=== PATIENT | female | born 1955 | race Caucasian/White ===

== ENCOUNTER → 2020-10-19 13:35 | Outpatient (CLI) | payer MEDICARE, OTHER, MEDICAID, SELFPAY ==
--- NOTE | 2020-10-19 | DI.ECHO.S_ITS ---
[facility] +---------+ : : [address] : : : : [id number] : : : : Phone: [phone]---------+ Echocardiogram Report + + :Name: TONY DUARTE Study Date: 10/19/2020 Height: 65 in : :[facility] ReadingLocation: Weight: 87 lb : : Gender: Female BSA: 1.4 m2 : :: 1955 Age: 65 yrs BP: 173/98 mmHg: :Reason For Study: Syncope : :Ordering Physician: Thomas : :Joanne Mojica Performed By: Demian Reaves : :Referring: THOMAS MOJICA : + + Interpretation Summary Left ventricular systolic function appears normal with an estimated ejection fraction of 55 to 60% without any focal wall motion abnormality. Left ventricular size and wall thickness grossly appear normal. While diastolic function is challenging to definitively assess, there is probable normal diastolic function with normal filling pressures. The right ventricle is not well seen but grossly appears normal in size and systolic function. Right ventricular systolic pressure is estimated at 39 mmHg with a CVP of 3 mmHg. The atria not well visualized but grossly appear to be normal in size. There is mild tricuspid regurgitation but no other significant valvular abnormality. Procedure: A two-dimensional transthoracic echocardiogram with color flow and Doppler was performed. The study quality was technically adequate. There is no prior echocardiogram noted for this patient. The patient was in sinus rhythm with heart rates between 55-65 bpm during the exam. Left Ventricle: The left ventricle is normal in size and wall thickness. The left ventricle appears normal in size, wall thickness, and systolic function without any focal wall motion abnormalities. The ejection fraction is estimated to be 55-60%. Diastolic function could not be accurately assessed due to unobtainable data. Diastolic parameters suggest probable normal left ventricular diastolic function and normal filling pressures. Right Ventricle: The right ventricle is not well visualized. The right ventricle grossly appears normal in size with probable normal systolic function. Atria: The left atrium is not well visualized. The left atrium grossly appears normal in size. Right atrium not well visualized. There is no Doppler evidence for an interatrial shunt. Mitral Valve: The mitral valve is normal in structure and function. There is no mitral regurgitation noted. Aortic Valve: The aortic valve is normal in structure and function. The aortic valve is slightly calcified. The aortic valve opens well. There is no aortic valve stenosis. No aortic regurgitation is present. Tricuspid Valve: The tricuspid valve is not well visualized, but is grossly normal. There is mild tricuspid regurgitation. The right ventricular systolic pressure is estimated to be at least 39 mmHg based on an estimated right atrial pressure of 3 mm Hg. Pulmonic Valve: The pulmonic valve is normal in structure and function. There is no pulmonic valvular regurgitation. There is no other significant valvular heart disease. Great Vessels: The aortic root is normal size. The ascending aorta could not be visualized. The IVC is of normal diameter and collapses greater than 50% with a sniff. This suggests a low right atrial pressure of 3 mm Hg. Pericardium/ Pleura There is no pericardial effusion. There is no pleural effusion. MMode/2D Measurements & Calculations LVIDd: 3.9 cm LVOT diam: 2.0 cm LVIDs: 2.7 cm Ao root diam: 2.9 cm FS: 31.1 % IVSd: 0.63 cm LVPWd: 0.49 cm LV crisostomo. diameter/BSA (cm/m^2): 2.8 LV sys. diameter/BSA (cm/m^2): 1.9 LA A2 area: 6.8 cm2 IVC diam: 1.6 cm TAPSE: 2.1 cm Doppler Measurements & Calculations Ao V2 max: 89.2 cm/sec LVOT Max Minor: 61.2 cm/sec Ao V2 mean: 60.3 cm/sec LV V1 max P.5 mmHg Ao max P.2 mmHg LV V1 VTI: 14.6 cm Ao mean P.6 mmHg MARCELA(I,D): 2.2 cm2 Ao V2 VTI: 20.5 cm MARCELA(V,D): 2.1 cm2 sev ratio: 0.71 MARCELA indexed to BSA (cm^2/m^2): 1.6 MV E max minor: 76.5 cm/sec TR max minor: 301.8 cm/sec MV A max minor: 50.1 cm/sec TR max P.4 mmHg MV E/A: 1.5 PA pr(Accel): 46.5 mmHg Med Peak E' Minor: 9.6 cm/sec E/E' med: 7.9 Lat Peak E' Minor: 12.3 cm/sec E/E' lat: 6.2 E/e' average: 7.1 MV dec time: 0.19 sec [facility] 45.7 ml Reading Physician:05:08 PM
== END ==
PROVIDERS: PCP Registered Nurse; Referring Provider Specialist; Visit Provider Specialist
DX: I07.1 Rheumatic tricuspid insufficiency (principal); R55 Syncope and collapse; R06.00 Dyspnea, unspecified
CPT/HCPCS: 93306